=== PATIENT | female | born 1985 | race Caucasian/White ===

== ENCOUNTER 2024-05-25 10:58 | Emergency (ER) | payer MEDICAID ==
[~2024-05-25] VITALS: Ht 165.1 cm; Wt 49.0 kg
[~2024-05-25 10:58] MED LIST: ARIP20TA62 MT; BENZ100C86 MT; FURO-151 MT; INSU100C6 SQ; INSU100I28 SQ; LACT10SO7 MT; METF-415 MT; NALT50TA5 MT; ONDA-241 PO; SEMA0.258; SPIR100T5 PO
[2024-05-25 11:02] VITALS: O2SAT 97
[2024-05-25 11:19] VITALS: BP 114/76; PULSE 109; RESP 16; TEMP 37; O2SAT 98
[2024-05-25 11:26] LABS: BASOPHILS % 0.7 % (0.0-2.0); EOSINOPHILS % 1.8 % (0.0-5.0); HEMATOCRIT. 40.3 % (36.0-48.0); LYMPHOCYTES % 22.9 % (20.0-50.0); MEAN CORPUSCULAR HEMOGLOBIN 25.9 pg (28.0-32.0); MEAN CORPUSCULAR HGB CONC 32.2 g/dL (31.0-37.0); MEAN CORPUSCULAR VOLUME 80.5 fL (81.0-99.0); MEAN PLATELET VOLUME 8.2 fl (7.4-10.4); MONOCYTES % 9.3 % (2.0-8.0); NEUTROPHILS % 65.3 % (40.0-76.0); PLATELET 171 x1000/uL (130-400); RED BLOOD CELL COUNT 5.01 mill/uL (4.2-5.4); RED CELL DISTRIBUTION WIDTH 21.3 % (11.6-14.6); WHITE BLOOD COUNT 5.2 x1000/uL (4.5-11.0)
[2024-05-25 11:35] LABS: CHLORIDE 99 mEq/L (98-107); POTASSIUM 3.5 mEq/L (3.5-5.1); SODIUM 137 mEq/L (136-145)
[2024-05-25 11:36] LABS: CALCIUM 9.1 mg/dL (8.7-10.4); CARBON DIOXIDE 24 mEq/L (21-32)
[2024-05-25 11:39] LABS: CLARITY URINE CLOUDY (CLEAR); COLOR URINE DARK YELLOW (YELLOW); GLUCOSE URINE NEGATIVE (NEGATIVE); KETONES URINE 1+ (NEGATIVE); LEUKOCYTE ESTERASE URINE 1+ (NEGATIVE); NITRITE URINE NEGATIVE (NEGATIVE); OCCULT BLOOD URINE 3+ (NEGATIVE); PROTEIN URINE 1+ (NEGATIVE); SPECIFIC GRAVITY URINE 1.024 (1.005-1.030)
[2024-05-25 11:41] LABS: CREATININE 0.8 mg/dL (0.6-1.0); GLUCOSE 134 mg/dL (70-105); UREA NITROGEN BLOOD 9 mg/dL (9-23)
[2024-05-25 11:42] LABS: AMMONIA 51 uMol/L (<32)
[2024-05-25 11:43] LABS: ALANINE AMINOTRANSFERASE 33 IU/L (10-49); ALBUMIN 3.9 g/dL (3.2-4.8); ASPARTATE AMINOTRANSFERASE 50 IU/L (<34); BILIRUBIN DIRECT 0.8 mg/dL (<=3.0); BILIRUBIN TOTAL 2.2 mg/dL (0.1-1.0); PROTEIN TOTAL 8.3 g/dL (6.0-8.3)
[2024-05-25 11:49] LABS: INR 1.3
[2024-05-25 11:56] LABS: HCG SCREEN NEGATIVE
[2024-05-25] MEDS ORDERED: ONDA4TAB50 PO (12:41)
[2024-05-25 12:48] LABS: RBC URINE TNTC /hpf (0-2)
[2024-05-25 12:51] LABS: BACTERIA URINE 4+; SQUAMOUS EPITHELIAL CELL URINE 3+ /lpf (RARE/1+); YEAST URINE NONE SEEN
[2024-05-25] MEDS: LACTULOSE 20G/30ML UDC PO ONE (13:07)
== END 2024-05-25 13:08 | disposition home or self-care (01) ==
LOC: ER 11:05
DX: R11.2 Nausea with vomiting, unspecified (principal); E11.9 Type 2 diabetes mellitus without complications; K74.60 Unspecified cirrhosis of liver; F10.90 Alcohol use, unspecified, uncomplicated; Z79.4 Long term (current) use of insulin; Z79.84 Long term (current) use of oral hypoglycemic drugs; Z79.899 Other long term (current) drug therapy; Y90.9 Presence of alcohol in blood, level not specified
CPT/HCPCS: 36415; 80048; 80076; 81003; 82140; 84703; 85025; 99283